=== PATIENT | male | born 1985 | race Asian ===

== ENCOUNTER 2020-12-17 19:55 | Emergency (ER) | payer SELFPAY ==
[~2020-12-17] VITALS: Ht 167.6 cm; Wt 59.0 kg
[2020-12-17] MEDS ORDERED: ACETAMINOPHEN 325MG TABLET PO ONE (21:30)
[2020-12-17] MEDS ORDERED: OXYCODONE HCL 10MG TABLET SR 12HR PO ONE (22:00)
[2020-12-17] MEDS ORDERED: KETOROLAC 60MG/2ML VIAL IM ONE (23:00)
[2020-12-18 00:34] VITALS: BP 136/68
== END 2020-12-18 00:36 | disposition home or self-care (01) ==
LOC: ER 19:55
DX: S83.92XA Sprain of unspecified site of left knee, initial encounter (principal); S89.82XA Other specified injuries of left lower leg, initial encounter; F17.210 Nicotine dependence, cigarettes, uncomplicated; V28.0XXA Motorcycle driver injured in noncollision transport accident in nontraffic accident, initial encounter; Y93.89 Activity, other specified; Y92.488 Other paved roadways as the place of occurrence of the external cause
CPT/HCPCS: 71045; 72100; 73030; 73560; 99284; Z7610